=== PATIENT | male | born 2000 | race Caucasian/White ===

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

== ENCOUNTER 2022-06-12 12:13 | Emergency (ER) | payer OTHER ==
[~2022-06-12] VITALS: Ht 177.8 cm; Wt 109.1 kg
[~2022-06-12 12:13] MED LIST changes: +ADDERALL30 MG PO; +GENTAK0.32 OD; +TRILEPTAL300 M1 PO
[2022-06-12 12:21] VITALS: BP 131/92
[2022-06-12 12:30] VITALS: BP 144/88
[2022-06-12 12:56] VITALS: BP 133/87
[2022-06-12] MEDS ORDERED: KEFLEX500 MG PO (14:11)
[2022-06-12 14:31] VITALS: BP 149/95
== END 2022-06-12 14:33 | disposition home or self-care (01) ==
LOC: ED 12:13
DX: S01.82XA Laceration with foreign body of other part of head, initial encounter (principal); F84.0 Autistic disorder; W20.8XXA Other cause of strike by thrown, projected or falling object, initial encounter; Y93.H3 Activity, building and construction; Y92.009 Unspecified place in unspecified non-institutional (private) residence as the place of occurrence of the external cause